=== PATIENT | male | born 1980 | race Two or more races ===

== ENCOUNTER 2023-10-23 15:37 | Emergency (ER) | payer OTHER ==
[2023-10-23] MEDS: ceFAZolin 1 GM Vial IV ONE (16:15)
[2023-10-23] MEDS: Ondansetron 4 MG/2 ML SDV IVPUSH ONE (16:17)
[2023-10-23] MEDS: Morphine 4 MG/ML Syringe IVPUSH ONE (16:17)
[2023-10-23] MEDS: Diphtheria,Pertussis(Acell),Tetanus Vaccine 0.5 ML Syringe IM ONE (16:17)
[2023-10-23] MEDS: Sodium Chloride 0.9% 1,000 ML IV SCH (16:24)
[2023-10-23 16:25] LABS: BASOPHILS ABSOLUTE AUTO 0.1 K/mm3 (0.0-0.2); BASOPHILS PERCENT AUTO 0.5 % (0.0-1.0); EOSINOPHILS ABSOLUTE AUTO 0.4 K/mm3 (0.0-0.4); EOSINOPHILS PERCENT AUTO 2.4 % (0.0-6.0); HEMATOCRIT 40.9 % (42.0-52.0); HEMOGLOBIN 14.1 gm/dl (14.0-18.0); IMMATURE GRAN ABSOLUTE AUTO 0.04 K/mm3 (0.00-0.05); IMMATURE GRAN PERCENT AUTO 0.3 % (0.0-0.4); LYMPHOCYTES ABSOLUTE AUTO 1.8 K/mm3 (1.0-4.8); LYMPHOCYTES PERCENT AUTO 11.4 % (24.0-44.0); MEAN CORPUSCULAR HEMOGLOBIN 30.5 pg (28.0-32.0); MEAN CORPUSCULAR HGB CONC 34.5 g/dl (32.0-36.0); MEAN CORPUSCULAR VOLUME 88.5 fl (83.0-99.0); MEAN PLATELET VOLUME 9.8 fl (9.4-12.4); MONOCYTES ABSOLUTE AUTO 0.9 K/mm3 (0.0-0.8); MONOCYTES PERCENT AUTO 5.5 % (0.0-8.0); NEUTROPHILS ABSOLUTE AUTO 12.3 K/mm3 (1.8-7.7); NEUTROPHILS PERCENT AUTO 79.9 % (41.0-71.0); PLATELET COUNT,PLT 269 K/mm3 (150-400); RED BLOOD CELL COUNT 4.62 M/mm3 (4.52-5.90); WHITE BLOOD CELL COUNT,WBC 15.33 K/mm3 (3.9-11.3)
[2023-10-23 16:44] LABS: INR 1.04; PROTHROMBIN TIME 11.1 SECONDS (9.7-12.0)
[2023-10-23 16:54] LABS: A/G RATIO 1.1 (1-2); ALBUMIN 3.6 g/dl (3.4-5.0); BILIRUBIN TOTAL 0.6 mg/dL (0.2-1.0); CALCIUM 7.9 mg/dL (8.5-10.1); EST CRCL DRUG DOSING (CG) 91.58 mL/min; PROTEIN TOTAL,TP 6.9 g/dl (6.4-8.2)
[2023-10-23] MEDS: Lidocaine 1% 10 ML MDV INJECT ONE (17:12)
== END 2023-10-23 18:05 ==
LOC: JD.ED 15:37
DX: S68.521A Partial traumatic transphalangeal amputation of right thumb, initial encounter (principal); W23.0XXA Caught, crushed, jammed, or pinched between moving objects, initial encounter
CPT/HCPCS: 36415; 73140; 80053; 85025; 85610; 90471; 90715; 96361; 96374; 96375; 99285; J0690; J2270; J2405; J7030; J3490

== ENCOUNTER 2023-10-28 13:15 | Emergency (ER) | payer OTHER | END 2023-10-28 15:35 | disposition home or self-care (01) | LOC: JD.ED 13:15 | DX: S68.511A Complete traumatic transphalangeal amputation of right thumb, initial encounter (principal); X58.XXXA Exposure to other specified factors, initial encounter | CPT/HCPCS: 99282 ==